=== PATIENT | female | born 1960 | race Caucasian/White ===

== ENCOUNTER 2018-11-22 14:26 | Emergency (ER) | payer OTHER ==
[~2018-11-22] VITALS: Ht 165.1 cm; Wt 60.3 kg
[2018-11-22 14:58] VITALS: Ht 165.1 cm; Wt 60.3 kg
[2018-11-22] MEDS ORDERED: KETOROLAC 30 MG INJ IM STA (17:12)
[2018-11-22] MEDS ORDERED: TRAM50TA2 PO (19:10)
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
[2018-11-22 19:27] VITALS: BP 136/89; PULSE 74; RESP 19
== END 2018-11-22 19:37 | disposition home or self-care (01) ==
LOC: FTE 14:26
DX: S39.012A Strain of muscle, fascia and tendon of lower back, initial encounter (principal); R40.2142 Coma scale, eyes open, spontaneous, at arrival to emergency department; R40.2362 Coma scale, best motor response, obeys commands, at arrival to emergency department; R40.2252 Coma scale, best verbal response, oriented, at arrival to emergency department; S13.9XXA Sprain of joints and ligaments of unspecified parts of neck, initial encounter; V54 Occupant of pick-up truck or van injured in collision with heavy transport vehicle or bus
CPT/HCPCS: 72040; 72100; 96372; 99284; J1885